=== PATIENT | male | born 1980 | race Asian ===

== ENCOUNTER 2018-02-11 12:19 | Emergency (ER) | payer SELFPAY ==
[~2018-02-11] VITALS: Ht 182.9 cm; Wt 69.0 kg
[2018-02-11] MEDS ORDERED: MAGNESIUM/ALUMINUM HYDROXIDE/SIMETHICONE 30ML UDC PO ONE (13:30)
[2018-02-11 15:19] VITALS: BP 127/80
== END 2018-02-11 15:49 | disposition home or self-care (01) ==
LOC: ER 13:47
DX: R07.89 Other chest pain (principal); F12.10 Cannabis abuse, uncomplicated; Z91.09 Other allergy status, other than to drugs and biological substances
CPT/HCPCS: 71045; 93005; 99284